=== PATIENT | female | born 1970 | race Caucasian/White ===

== ENCOUNTER 2017-08-25 15:18 | Emergency (ER) | payer OTHER ==
[2017-08-25 16:14] VITALS: BP 115/47
--- NOTE | 2017-09-02 17:24 | UC ---
Raleigh Duggan Thomas, scribed for Aurora Watson DO on 08/25/17 at 1718 . Skin Complaint HPI - HPI Summary HPI Summary: The pt is a 46 y/o F [place] [facility] [place] tick bite to her upper inner right thigh that she first noticed two days ago. The patient has a circular area of erythema about 11cm to the region of the tick bite. There is associated pain described as hot, tender, and pruritic. The pt rates the pain 2/10. The pain is aggravated by touch. It is alleviated by nothing. She denies F/S/C, sore throat , eye discharge, N/V, and abd pain. Pt denies any other complaints at this time. A few years ago, the patient had a Lyme diagnosis with a 21-day course of Doxycycline. - History of Current Complaint Chief Complaint: [facility] Time Seen by Provider: 08/25/17 17:07 Stated Complaint: TICK BITE Hx Obtained From: Patient Hx Last Menstrual Period: one week ago Onset/Duration: Sudden Onset, Lasting Hours - she first noticed the tick two days ago, Still Present Pain Intensity: 2 Pain Scale Used: 0-10 Numeric Location: Other - upper inner right thigh Character: Pruritus, Redness, Painful Aggravating Factor(s): Touch Alleviating Factor(s): Nothing Associated Signs & Symptoms: Negative: Nausea, Fever, Chills, Abdominal Pain Related History: Possible Reaction to: Insect - the patient noticed a tick on her skin two days ago - Allergy/Home Medications Allergies/Adverse Reactions: Allergies Allergy/AdvReac Type Severity Reaction Status Date / Time Latex Allergy RASH WITH Verified 03/26/16 17:35 PROLONGED EXPOSURE ENVIRONMENTAL Allergy Unknown Uncoded 03/26/16 17:35 Reaction Details FRAGRANCES Allergy MIGRAINES Uncoded 03/26/16 17:35 HARSH CHEMICALS Allergy SKIN Uncoded 03/26/16 17:35 IRRITATION- BREATHING Home Medications: Home Medications Turmeric (Curcuma Longa) [Turmeric] 500 mg PO 08/25/17 [History] Review of Systems Constitutional: Other - NEGATIVE: fever Skin: Other - Pain to region of tick bite with erythema Is Patient Immunocompromised?: No All Other Systems Reviewed And Are Negative: Yes PMH/Surg Hx/FS Hx/Imm Hx Previously Healthy: No - HPV, carcinoma. NEGATIVE: [facility] - Surgical History Surgical History: Yes Surgery Procedure, Year, and Place: CARCINOMA INSITU REMOVED- [facility] - Family History Known Family History: Negative: Cardiac Disease, Hypertension, Diabetes Family History: none - Social History Alcohol Use: Daily Alcohol Amount: 1-2 PER DAY Substance Use Type: Marijuana Substance Use Comment - Amount & Last Used: sometimes Smoking Status (MU): Current Some Day Smoker Type: Cigarettes Amount Used/How Often: 5- 10 CIGARETTES PER DAY X 20 YEARS Have You Smoked in the Last Year: Yes When Did the Patient Quit Smoking/Using Tobacco: 12/2014 Physical Exam Triage Information Reviewed: Yes Appearance: Well-Appearing, No Pain Distress, Well-Nourished Vital Signs: Initial Vital Signs Temp 97.5 F 08/25/17 16:10 Pulse 83 08/25/17 16:10 Resp 18 08/25/17 16:10 BP 115/47 08/25/17 16:10 Pulse Ox 99 08/25/17 16:10 Vital Signs Reviewed: Yes Eyes: Positive: Conjunctiva Clear. Negative: Discharge ENT: Positive: Hearing grossly normal. Negative: Muffled/hoarse voice Neck exam: Normal Neck: Positive: Supple Respiratory: Positive: Lungs clear, Normal breath sounds, No respiratory distress, No accessory muscle use Cardiovascular: Positive: RRR, No Murmur Musculoskeletal Exam: Normal Neurological: Positive: Alert, Muscle Tone Normal Psychological Exam: Normal Psychological: Positive: Age Appropriate Behavior Skin Exam: Normal Skin: Positive: Other - Warm, dry. She has a rash about 11cm in diameter on her upper inner right thigh that is consistent with early erythma migrans. It is not hot to the touch. Course/Dx - Course Course Of Treatment: The patient has been encouraged to stop smoking. Medications reviewed this visit. The patient presents with a rash on her right thigh consistent with erythema migrans. She was educated regarding Lyme disease treatment and will be put on a course of Doxycycline. - Diagnoses Provider Diagnoses: lyme dz Discharge - Discharge Plan Condition: Stable Disposition: HOME Prescriptions: DOXYcycline CAP(*) [DOXYcycline 100MG CAP(*)] 100 mg PO BID #42 cap Patient Education Materials: Lyme Disease (ED), Tick Bite (ED) Referrals: Iraj Ellis MD [Primary Care Provider] - (follow up in 3-5 days) Additional Instructions: DOXYCYCLINE: Doxycycline (Vibramycin, Doryx) is an antibiotic of the tetracycline family. This type of drug is useful for infections of the respiratory tract and genital tract, and is sometimes used for intestinal infections. Unlike most tetracyclines, doxycycline can be taken with food. It is longer acting, and (usually) less prone to side effects than regular tetracycline. Tetracycline antibiotics can stain immature teeth and SHOULD NOT BE TAKEN BY CHILDREN, NURSING MOTHERS, OR WOMEN. Tetracyclines can make you more prone to sunburn. Abdominal cramping, nausea, and diarrhea are occasional side effects. Women may experience vaginal yeast infections. Call the doctor at once if you develop hives, itching, shortness of breath , or lightheadedness. DISCUSSED, DOXY ALSO INCREASES YOUR RISK OF SUNBURN. COVER UP WHEN YOU GO OUTSIDE. ANYTIME YOU TAKE AN ANTIBIOTIC, IT IS IMPORTANT TO REPLENISH THE BODY'S SUPPLY OF "GOOD BACTERIA." YOU CAN GET GOOD BACTERIA FROM HIGH QUALITY CULTURED FOODS SUCH LOCAL YOGURT, SOUR KRAUT, CY LOIDA, NATURALLY FERMENTED PICKLES AND PROBIOTIC DRINKS. YOU CAN ALSO GET GOOD BACTERIA FROM A PROBIOTIC SUPPLEMENT. The documentation as recorded by the Raleigh linda Thomas accurately reflects the service I personally performed and the decisions made by me, Aurora Watson DO.
== END 2017-08-25 17:41 | disposition home or self-care (01) ==
LOC: UCEAST 15:18
DX: A69.20 Lyme disease, unspecified (principal); D09.9 Carcinoma in situ, unspecified; Z72.0 Tobacco use
CPT/HCPCS: 99212; G0463